=== PATIENT | male | born 1955 | race Caucasian/White ===

== ENCOUNTER → 2018-01-19 | Outpatient (CLI) | payer OTHER ==
[~2018-01-19] MED LIST: ABAT125S IV; ASPI-496 PO; ATOR80TA PO; CEVI30CA4 PO; CHOL10002 PO; CLOP75TA52 PO; DOXY100C PO; FINA5TAB PO; FINA5TAB4 PO; METO1TAB18 PO; MIRT30TA4 PO; NEXIUM PO; OXYC-307 PO; QUIN324C3 OP; TRIA0.2576 PO; URSO300C27 PO
[2018-01-19 10:39] LABS: BASOPHILS # (AUTO) 0.03 x10^3/uL (0-0.1); BASOPHILS % (AUTO) 1 % (0-1); EOSINOPHILS # (AUTO) 0.03 x10^3/uL (0-0.4); EOSINOPHILS % (AUTO) 1 % (1-7); LYMPHOCYTES # (AUTO) 1.29 x10^3/uL (1-3.4); LYMPHOCYTES % (AUTO) 32 % (22-44); MD NO; MEAN CORPUSCULAR HEMOGLOBIN 28.8 pg (27.5-34.5); MEAN CORPUSCULAR HGB CONC 33.1 g/dL (33.2-36.2); MEAN CORPUSCULAR VOLUME 87.2 fL (81-97); MEAN PLATELET VOLUME 6.5 fL (7.4-10.4); MONOCYTES # (AUTO) 0.68 x10^3/uL (0.2-0.8); MONOCYTES % (AUTO) 17 % (2-9); NEUTROPHILS % (AUTO) 50 % (42-75); PLATELET COUNT 294 x10^3/uL (130-400); RED BLOOD COUNT 5.15 x10^6/uL (4.38-5.82)
[2018-01-19 10:40] LABS: HCT (SEDRATE) 44.4 % (39.2-51.8)
[2018-01-19 10:44] LABS: MICROSCOPIC NOT IND
[2018-01-19 10:44] LABS: INTERNATIONAL NORMALIZED RATIO 1.02 (0.93-1.1); PROTHROMBIN TIME 10.6 Seconds (9.6-11.5)
[2018-01-19 10:47] LABS: CULTURE INDICATED? NO
[2018-01-19 10:47] LABS: ALANINE AMINOTRANSFERASE 18 U/L (12-78); ALBUMIN 3.5 g/dL (3.4-5.0); ANION GAP 9 mmol/L (5-15); CALCIUM 8.8 mg/dL (8.5-10.1); CHLORIDE 103 mmol/L (98-107); CREATININE 0.84 mg/dL (0.7-1.3)
[2018-01-19 10:49] LABS: ALKALINE PHOSPHATASE 85 U/L (45-117); BILIRUBIN,TOTAL 0.4 mg/dL (0.2-1.0)
== END | disposition home or self-care (01) ==
LOC: STAR 09:22
PROVIDERS: ATTEND Orthopaedic Surgery Orthopaedic Surgery of the Spine
DX: Z01.818 Encounter for other preprocedural examination (principal); J84.10 Pulmonary fibrosis, unspecified; I49.1 Atrial premature depolarization; M48.54XA Collapsed vertebra, not elsewhere classified, thoracic region, initial encounter for fracture
CPT/HCPCS: 36415; 71046; 80053; 80074; 81003; 85025; 85610; 85651; 85730; 87806; 93005; G0475

== ENCOUNTER 2018-02-20 01:06 | Inpatient (IN) | payer OTHER ==
[~2018-02-20] VITALS: Ht 172.7 cm; Wt 50.1 kg
[2018-02-20] MEDS ORDERED: MIDAZOLAM 1 MG/ML, 5ML ONE (01:16)
[2018-02-20] MEDS ORDERED: FENTANYL PF 100 MCG/2ML ONE (01:16)
[2018-02-20] MEDS ORDERED: HEPARIN 1,000 UNITS/ML, 10ML ONE (01:17)
[2018-02-20] MEDS ORDERED: NITROGLYCERIN 5 MG/ML, 10ML ONE (01:17)
[2018-02-20] MEDS ORDERED: VERAPAMIL 2.5 MG/ML, 2ML ONE (01:17)
[2018-02-20] MEDS ORDERED: TICAGRELOR 90 MG TABLET ONE (01:17)
[2018-02-20] MEDS ORDERED: LIDOCAINE 2%, 2ML ONE (01:17)
[2018-02-20] MEDS ORDERED: BIVALIRUDIN 250 MG ONE (01:17)
[2018-02-20] MEDS ORDERED: SODIUM CHLORIDE 0.9% 1,000 ML IV ONE (01:31)
[2018-02-20 01:33] LABS: BASOPHILS # (AUTO) 0.05 x10^3/uL (0-0.1); BASOPHILS % (AUTO) 1 % (0-1); EOSINOPHILS # (AUTO) 0.07 x10^3/uL (0-0.4); EOSINOPHILS % (AUTO) 1 % (1-7); LYMPHOCYTES % (AUTO) 27 % (22-44); MD NO; MEAN CORPUSCULAR HEMOGLOBIN 27.5 pg (27.5-34.5); MEAN CORPUSCULAR HGB CONC 32.2 g/dL (33.2-36.2); MEAN CORPUSCULAR VOLUME 85.2 fL (81-97); MEAN PLATELET VOLUME 6.4 fL (7.4-10.4); MONOCYTES # (AUTO) 0.69 x10^3/uL (0.2-0.8); MONOCYTES % (AUTO) 9 % (2-9); NEUTROPHILS # (AUTO) 4.74 x10^3/uL (1.8-6.8); NEUTROPHILS % (AUTO) 62 % (42-75); PLATELET COUNT 578 x10^3/uL (130-400); RED CELL DISTRIBUTION WIDTH 18.3 % (9.4-14.8)
[2018-02-20 01:42] LABS: INTERNATIONAL NORMALIZED RATIO 1.1 (0.93-1.1); PROTHROMBIN TIME 11.3 Seconds (9.6-11.5)
[2018-02-20] MEDS ORDERED: ONDANSETRON 2MG/ML, 2ML IVPush PRN ×3 (02:00→04:30)
[2018-02-20] MEDS ORDERED: MORPHINE SULFATE 4 MG/ML, 1ML IVPush PRN (02:00)
[2018-02-20] MEDS ORDERED: BISACODYL 5 MG EC TABLET PO PRN (02:30)
[2018-02-20] MEDS ORDERED: ACETAMINOPHEN 325 MG TABLET PO PRN ×2 (02:30→04:30)
[2018-02-20] MEDS ORDERED: ZOLPIDEM 5MG TABLET PO PRN (02:30)
[2018-02-20] MEDS: METOPROLOL TARTRATE 25 MG TABLET PO SCH ×3 (02:47→20:30)
[2018-02-20 03:10] VITALS: BP 109/52
[2018-02-20 03:30] VITALS: BP 122/83
[2018-02-20] MEDS ORDERED: SODIUM CHLORIDE 0.9% 1,000 ML IV SCH (04:03)
[2018-02-20] MEDS ORDERED: PRED5TAB19 PO (04:20)
[2018-02-20] MEDS ORDERED: METH10TA54 PO (04:24)
[2018-02-20] MEDS ORDERED: DICL100G19 TP (04:26)
[2018-02-20] MEDS ORDERED: BISACODYL 10 MG SUPP PR PRN (04:30)
[2018-02-20] MEDS ORDERED: DOCUSATE 100 MG CAPSULE PO PRN (04:30)
[2018-02-20] MEDS ORDERED: POLYETHYLENE GLYCOL 17 GM PACKET PO PRN (04:30)
[2018-02-20] MEDS ORDERED: hydrALAzine 20 MG/ML, 1ML IVPush PRN (04:30)
[2018-02-20] MEDS ORDERED: morphine SULFATE 10 MG/ML, 1ML IVPush PRN (04:30)
[2018-02-20] MEDS ORDERED: ENALAPRILAT 1.25 MG/ML, 2ML IVPush PRN (04:30)
[2018-02-20] MEDS: SODIUM CHLORIDE 0.9% 1,000 ML IV SCH ×3 (04:38→14:12)
[2018-02-20] MEDS: OXYcodone IR 5MG TABLET PO PRN ×2 (04:39→20:43)
[2018-02-20 05:29] LABS: HEMOGLOBIN A1C 6.1 % (4.2-6.3)
[2018-02-20 05:31] LABS: FREE T4 (FREE THYROXINE) 1.49 ng/dL (0.76-1.46); THYROID STIMULATING HORMONE 1.36 mIU/L (0.358-3.740)
[2018-02-20] MEDS: TEMPLATE NON-FORMULARY MED. (Cevimeline Hcl 30 MG) HOMEMEDPO SCH ×3 (09:00→20:28)
[2018-02-20] MEDS: NICOTINE 7 MG/24 HR PATCH.TD24 TD SCH (09:00)
[2018-02-20] MEDS: ASPIRIN 81 MG TABLET EC PO SCH (09:55)
[2018-02-20] MEDS: OMEPRAZOLE 20 MG CAPSULE.DR PO SCH (09:55)
[2018-02-20] MEDS: CHOLECALCIFEROL 1,000 UNIT TABLET PO SCH ×2 (09:55→20:29)
[2018-02-20] MEDS: FINASTERIDE 5 MG TABLET PO SCH (09:56)
[2018-02-20] MEDS: LISINOPRIL 5 MG TABLET PO SCH ×2 (09:56→20:30)
[2018-02-20] MEDS: URSODIOL 300 MG CAPSULE PO SCH ×3 (10:05→20:46)
[2018-02-20] MEDS: TICAGRELOR 90 MG TABLET PO SCH ×2 (10:05→20:46)
[2018-02-20] MEDS: HEPARIN 5,000 UNITS/ML, 1ML SQ SCH ×2 (10:05→16:00)
[2018-02-20] MEDS ORDERED: POTASSIUM CHLORIDE 20 MEQ TAB.ER.PRT ONE ×2 (14:10)
[2018-02-20] MEDS ORDERED: METHOTREXATE 2.5 MG TABLET PO SCH (14:30)
[2018-02-20] MEDS ORDERED: POTASSIUM CHLORIDE 20 MEQ TAB.ER.PRT PO ONE (14:30)
[2018-02-20] MEDS: TRIAZOLAM 0.25 MG HOMEMEDPO SCH (20:28)
[2018-02-20] MEDS: ATORVASTATIN 80 MG TABLET PO SCH (20:30)
[2018-02-20] MEDS: MIRTAZAPINE 30 MG TAB.RAPDIS PO SCH (20:31)
[2018-02-21] MEDS: SODIUM CHLORIDE 0.9% 1,000 ML IV SCH ×2 (00:12→07:18)
[2018-02-21] MEDS: HEPARIN 5,000 UNITS/ML, 1ML SQ SCH ×3 (01:18→16:38)
[2018-02-21 04:00] VITALS: BP 108/59
[2018-02-21 05:00] LABS: BASOPHILS # (AUTO) 0.06 x10^3/uL (0-0.1); BASOPHILS % (AUTO) 2 % (0-1); EOSINOPHILS # (AUTO) 0.04 x10^3/uL (0-0.4); EOSINOPHILS % (AUTO) 1 % (1-7); LYMPHOCYTES # (AUTO) 1.11 x10^3/uL (1-3.4); LYMPHOCYTES % (AUTO) 29 % (22-44); MD NO; MEAN CORPUSCULAR HEMOGLOBIN 29.1 pg (27.5-34.5); MEAN CORPUSCULAR HGB CONC 33.3 g/dL (33.2-36.2); MEAN CORPUSCULAR VOLUME 87.3 fL (81-97); MEAN PLATELET VOLUME 6.8 fL (7.4-10.4); MONOCYTES # (AUTO) 0.45 x10^3/uL (0.2-0.8); MONOCYTES % (AUTO) 12 % (2-9); NEUTROPHILS # (AUTO) 2.19 x10^3/uL (1.8-6.8); NEUTROPHILS % (AUTO) 57 % (42-75); PLATELET COUNT 385 x10^3/uL (130-400); RED BLOOD COUNT 3.87 x10^6/uL (4.38-5.82); RED CELL DISTRIBUTION WIDTH 19.1 % (9.4-14.8)
[2018-02-21 05:08] LABS: ALBUMIN 2.2 g/dL (3.4-5.0); ANION GAP 6 mmol/L (5-15); CALCIUM 7.7 mg/dL (8.5-10.1); CHLORIDE 113 mmol/L (98-107)
[2018-02-21 05:34] LABS: % IRON SATURATION 13 % (20-55); ALANINE AMINOTRANSFERASE 22 U/L (12-78); ALKALINE PHOSPHATASE 80 U/L (45-117); BILIRUBIN,TOTAL 0.2 mg/dL (0.2-1.0); CREATININE 0.48 mg/dL (0.7-1.3); FOLATE LEVEL 7.5 ng/mL (3.1-17.5); IRON LEVEL 28 mcg/dL (65-175); TOTAL IRON BINDING CAPACITY 220 mcg/dL (250-450); TOTAL PROTEIN 5.6 g/dL (6.4-8.2)
[2018-02-21] MEDS: NICOTINE 7 MG/24 HR PATCH.TD24 TD SCH (07:18)
[2018-02-21] MEDS: TICAGRELOR 90 MG TABLET PO SCH ×2 (07:50→20:38)
[2018-02-21] MEDS: LISINOPRIL 5 MG TABLET PO SCH ×2 (07:51→20:39)
[2018-02-21] MEDS: OMEPRAZOLE 20 MG CAPSULE.DR PO SCH (07:52)
[2018-02-21] MEDS: METOPROLOL TARTRATE 25 MG TABLET PO SCH ×2 (07:52→20:40)
[2018-02-21] MEDS: URSODIOL 300 MG CAPSULE PO SCH ×4 (07:53→22:06)
[2018-02-21] MEDS: ASPIRIN 81 MG TABLET EC PO SCH (07:53)
[2018-02-21] MEDS: CHOLECALCIFEROL 1,000 UNIT TABLET PO SCH ×2 (07:53→20:40)
[2018-02-21] MEDS: FINASTERIDE 5 MG TABLET PO SCH (07:54)
[2018-02-21] MEDS ORDERED: MAGNESIUM SULFATE PMX 2GM/50ML 50 ML IV ONE (08:00)
[2018-02-21] MEDS: TEMPLATE NON-FORMULARY MED. (Cevimeline Hcl 30 MG) HOMEMEDPO SCH ×3 (09:00→20:44)
[2018-02-21] MEDS: OXYcodone IR 5MG TABLET PO PRN ×3 (13:59→23:33)
[2018-02-21 14:00] VITALS: BP 109/57
[2018-02-21 19:05] VITALS: BP 122/65
[2018-02-21] MEDS: ATORVASTATIN 80 MG TABLET PO SCH (20:38)
[2018-02-21] MEDS: TRIAZOLAM 0.25 MG HOMEMEDPO SCH (20:44)
[2018-02-21] MEDS: MIRTAZAPINE 30 MG TAB.RAPDIS PO SCH ×2 (21:59→22:06)
[2018-02-22] MEDS: HEPARIN 5,000 UNITS/ML, 1ML SQ SCH ×2 (00:33→08:16)
[2018-02-22 01:12] VITALS: BP 116/62
[2018-02-22] MEDS: OXYcodone IR 5MG TABLET PO PRN ×2 (04:18→12:51)
[2018-02-22] MEDS: TEMPLATE NON-FORMULARY MED. (Cevimeline Hcl 30 MG) HOMEMEDPO SCH (07:59)
[2018-02-22] MEDS: NICOTINE 7 MG/24 HR PATCH.TD24 TD SCH (08:01)
[2018-02-22] MEDS: ASPIRIN 81 MG TABLET EC PO SCH (08:16)
[2018-02-22] MEDS: LISINOPRIL 5 MG TABLET PO SCH (08:17)
[2018-02-22] MEDS: TICAGRELOR 90 MG TABLET PO SCH (08:17)
[2018-02-22] MEDS: METOPROLOL TARTRATE 25 MG TABLET PO SCH (08:17)
[2018-02-22] MEDS: OMEPRAZOLE 20 MG CAPSULE.DR PO SCH (08:17)
[2018-02-22] MEDS: CHOLECALCIFEROL 1,000 UNIT TABLET PO SCH (08:18)
[2018-02-22 08:29] VITALS: BP 109/65
[2018-02-22] MEDS: FINASTERIDE 5 MG TABLET PO SCH (10:08)
[2018-02-22] MEDS ORDERED: ASPI-621 PO (11:40)
[2018-02-22] MEDS ORDERED: LISI5TAB7 PO (11:40)
[2018-02-22] MEDS ORDERED: TICA90TA PO (11:40)
[2018-02-22] MEDS ORDERED: METO25TA35 PO (11:40)
[2018-02-22] MEDS ORDERED: ATOR-2 PO (11:40)
== END 2018-02-22 14:04 | disposition home or self-care (01) | DRG 250 ==
LOC: MERGE 01:06 → EDBD 01:06 → ED 01:31 → EDIP 01:32 → ED 01:56 → CCU 02:25 → 5SO 02-21 13:27
PROVIDERS: ADMIT Internal Medicine; ATTEND Internal Medicine
PROC: 02713ZZ Dilation of Coronary Artery, Two Arteries, Percutaneous Approach (ICD-10-PCS; principal; 2018-02-20)
PROC: 02C03ZZ Extirpation of Matter from Coronary Artery, One Artery, Percutaneous Approach (ICD-10-PCS; 2018-02-20)
PROC: 4A023N7 Measurement of Cardiac Sampling and Pressure, Left Heart, Percutaneous Approach (ICD-10-PCS; 2018-02-20)
PROC: B2111ZZ Fluoroscopy of Multiple Coronary Arteries using Low Osmolar Contrast (ICD-10-PCS; 2018-02-20)
PROC: B2151ZZ Fluoroscopy of Left Heart using Low Osmolar Contrast (ICD-10-PCS; 2018-02-20)
DX: T82.855A Stenosis of coronary artery stent, initial encounter (principal); I21.19 ST elevation (STEMI) myocardial infarction involving other coronary artery of inferior wall; I47.2 Ventricular tachycardia; Y83.8 Other surgical procedures as the cause of abnormal reaction of the patient, or of later complication, without mention of misadventure at the time of the procedure; Y92.89 Other specified places as the place of occurrence of the external cause; M32.9 Systemic lupus erythematosus, unspecified; M35.00 Sjogren syndrome, unspecified; I45.10 Unspecified right bundle-branch block; D64.9 Anemia, unspecified; E78.5 Hyperlipidemia, unspecified; F17.210 Nicotine dependence, cigarettes, uncomplicated; F32.9 Major depressive disorder, single episode, unspecified; G89.29 Other chronic pain; I10 Essential (primary) hypertension; I25.10 Atherosclerotic heart disease of native coronary artery without angina pectoris; I25.2 Old myocardial infarction; J44.9 Chronic obstructive pulmonary disease, unspecified; K21.9 Gastro-esophageal reflux disease without esophagitis; K76.9 Liver disease, unspecified; M06.9 Rheumatoid arthritis, unspecified; N40.0 Benign prostatic hyperplasia without lower urinary tract symptoms; Z79.52 Long term (current) use of systemic steroids; Z89.512 Acquired absence of left leg below knee
CPT/HCPCS: 36415; 71045; 80047; 80053; 82607; 82728; 82746; 83036; 83540; 83550; 83735; 84439; 84443; 84484; 85025; 85610; 85730; 87081; 93005; 93306; 93458; 99156; 99157; 99291; C1894; J0583; J1644; J2250; J3010; J3490; J8610; C1725; C1757; C1769; C1887; J3475; J7030; J7512; Q9967